=== PATIENT | male | born 1970 ===

== ENCOUNTER 2017-03-21 05:50 | Emergency (ER) | payer SELFPAY ==
[2017-03-21 06:00] VITALS: BMI 25.0
[2017-03-21 06:04] VITALS: RESP 19
--- NOTE | 2017-03-21 06:06 | C.PDOC ---
History Of Present Illness 46 year old male presents to the ER complaining of fever, cough, congestion, and sore throat for about 2 days. Denies taking any medications prior to arrival. No shortness of breath or chest pain. Patient speaking in full sentences. Cough is dry, non-productive. Time Seen by Provider: 03/21/17 06:04 Chief Complaint (Nursing): Cough, Cold, Congestion History Per: Patient History/Exam Limitations: no limitations Onset/Duration Of Symptoms: Days (x2) Current Symptoms Are (Timing): Still Present Location Of Pain: Throat Sick Contacts (Context): None Associated Symptoms: Fever, Sore Throat, Cough, Nasal Congestion Ear Symptoms: Bilateral: None Severity: Moderate Pain Scale Rating Of: 4 Recent travel outside of the [place]: No Past Medical History Reviewed: Historical Data, Nursing Documentation, Vital Signs Vital Signs: Last Vital Signs Temp 101.2 F H 03/21/17 06:00 Pulse 114 H 03/21/17 06:00 Resp 19 03/21/17 06:00 BP 128/78 03/21/17 06:00 Pulse Ox 97 03/21/17 06:20 - Medical History PMH: No Chronic Diseases Surgical History: Appendectomy Family History: States: No Known Family Hx - Social History Hx Alcohol Use: Yes Hx Substance Use: No - Immunization History Hx Tetanus Toxoid Vaccination: Yes Hx Influenza Vaccination: No Hx Pneumococcal Vaccination: No Review Of Systems Constitutional: Positive for: Fever ENT: Positive for: Nose Congestion, Throat Pain Cardiovascular: Negative for: Chest Pain Respiratory: Positive for: Cough. Negative for: Shortness of Breath, Sputum Physical Exam - Physical Exam Appears: Non-toxic, No Acute Distress Skin: Warm, Dry Head: Normacephalic Eye(s): bilateral: Normal Inspection Ear(s): Bilateral: Normal Oral Mucosa: Moist Throat: Erythema (mild), No Exudate Neck: Trachea Midline, Supple Lymphatic: No Adenopathy (cervical lymphadenopathy) Chest: Symmetrical Cardiovascular: Rhythm Regular Respiratory: No Rales, No Rhonchi, No Wheezing Gastrointestinal/Abdominal: Soft, No Tenderness, No Distention Male Genital: Normal Inspection Extremity: Normal ROM Extremity: Bilateral: Atraumatic Neurological/Psych: Oriented x3, Normal Speech ED Course And Treatment O2 Sat by Pulse Oximetry: 97 (RA) Pulse Ox Interpretation: Normal Progress Note: Patient given Tamiflu, motrin, and tessalon perles in the ER. Reassessment Condition: Improved Disposition Counseled Patient/Family Regarding: Studies Performed, Diagnosis, Need For Followup, Rx Given - Disposition Referrals: [facility] [Outside] [facility] [Outside] Disposition: HOME/ ROUTINE Disposition Time: 06:05 Condition: FAIR Additional Instructions: Please return if symptoms recur Prescriptions: Benzonatate [Tessalon Perles] 100 mg PO TID #20 sgl Oseltamivir Phosphate [Tamiflu] 75 mg PO BID #10 capsule Instructions: Influenza (ED), Upper Respiratory Infection (ED) Forms: [employer] (Maltese) - POA Present On Arrival: None - Clinical Impression Clinical Impression: Upper respiratory infection - Scribe Statement The provider has reviewed the documentation as recorded by the Scribe (Sweetie Hilton) Provider Attestation: All medical record entries made by the Scribe were at my direction and personally dictated by me. I have reviewed the chart and agree that the record accurately reflects my personal performance of the history, physical exam, medical decision making, and the department course for this patient. I have also personally directed, reviewed, and agree with the discharge instructions and disposition.
[2017-03-21 06:58] VITALS: BP 121/68; PULSE 109; TEMP 100.2; O2SAT 98
== END 2017-03-21 06:58 | disposition home or self-care (01) ==
LOC: C.ER 05:50
DX: J06.9 Acute upper respiratory infection, unspecified (principal)

== ENCOUNTER 2017-08-21 11:45 | Emergency (ER) | payer OTHER ==
[2017-08-21 11:46] VITALS: BMI 25.0
[2017-08-21 12:03] VITALS: BP 110/73; PULSE 88; RESP 18; TEMP 99; O2SAT 98
--- NOTE | 2017-08-21 12:35 | RAD ---
Date of service: 08/21/2017 HISTORY: thoracic back pain COMPARISON: No prior. TECHNIQUE: Chest PA and lateral FINDINGS: LUNGS: No active pulmonary disease. PLEURA: No significant pleural effusion identified. No pneumothorax apparent. CARDIOVASCULAR: Normal. OSSEOUS STRUCTURES: No significant abnormalities. VISUALIZED UPPER ABDOMEN: Normal. OTHER FINDINGS: None. IMPRESSION: No active disease.
--- NOTE | 2017-08-21 12:47 | C.PDOC ---
History Of Present Illness 47 y/o male presents to ED with c/o back pain for 3 days. Patient states last night he had chills and subjective fever, took Tylenol with relief of fever but back pain persisted. Patient denies injury, numbness, weakness, bowel/bladder incontinence, dysuria or hematuria. Time Seen by Provider: 08/21/17 12:09 Chief Complaint (Nursing): Back Pain History Per: Patient History/Exam Limitations: no limitations Onset/Duration Of Symptoms: Days Current Symptoms Are (Timing): Still Present Quality Of Discomfort: "Pain" Past Medical History Reviewed: Historical Data, Nursing Documentation, Vital Signs Vital Signs: Last Vital Signs Temp 99.0 F 08/21/17 12:01 Pulse 88 08/21/17 12:01 Resp 18 08/21/17 12:01 BP 110/73 08/21/17 12:01 Pulse Ox 98 08/21/17 15:08 - Medical History PMH: No Chronic Diseases Surgical History: Appendectomy Family History: States: No Known Family Hx - Social History Hx Alcohol Use: Yes Hx Substance Use: No - Immunization History Hx Tetanus Toxoid Vaccination: Yes Hx Influenza Vaccination: No Hx Pneumococcal Vaccination: No Review Of Systems Constitutional: Negative for: Fever, Chills Cardiovascular: Negative for: Palpitations Respiratory: Negative for: Cough, Shortness of Breath, Wheezing Gastrointestinal: Negative for: Nausea, Vomiting Genitourinary: Negative for: Dysuria, Hematuria Musculoskeletal: Positive for: Back Pain. Negative for: Leg Pain Skin: Negative for: Rash Physical Exam - Physical Exam Appears: Non-toxic, No Acute Distress Skin: Warm, Dry, No Rash Head: Atraumatic, Normacephalic Eye(s): bilateral: Normal Inspection Oral Mucosa: Moist Neck: Normal ROM, Supple Cardiovascular: Rhythm Regular Respiratory: Normal Breath Sounds, No Rales, No Rhonchi, No Wheezing Gastrointestinal/Abdominal: Soft, No Tenderness, No Guarding, No Rebound Back: No CVA Tenderness, Other (parathoracic muscle tenderness) Extremity: Bilateral: Atraumatic, Normal Color And Temperature, Normal ROM Neurological/Psych: Oriented x3, Normal Speech, Normal Motor, Normal Sensation Gait: Steady ED Course And Treatment O2 Sat by Pulse Oximetry: 98 (RA) Pulse Ox Interpretation: Normal Medical Decision Making Medical Decision Making: Impression: Back pain Plan: * X-ray * Motrin Progress: Xray shows no infiltrates, pleural effusion, pneumothorax. Patient remained afebrile seated comfortably in no distress. Patient has no midline vertebral tenderness or extremity weakness or numbness. Patient is ambulatory in the emergency department with no signs of discomfort. Patient was advised to follow up with physician/clinic in 1-2 days. Disposition Counseled Patient/Family Regarding: Need For Followup, Rx Given - Disposition Referrals: [facility] [Outside] [facility] [Outside] Disposition: HOME/ ROUTINE Disposition Time: 12:50 Condition: STABLE Additional Instructions: Tu radiografa fue normal, sin fractura. Por favor aplique hielo en el holly 15 minutos neelam veces al da. [place] Motrin cuando sea necesario para el dolor cada 6 horas, con alimentos para no alterar el estmago. 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 - Scribe Statement The provider has reviewed the documentation as recorded by the Saigeiblacho Bennett All medical record entries made by the Saigeiblacho were at my direction and personally dictated by me. I have reviewed the chart and agree that the record accurately reflects my personal performance of the history, physical exam, medical decision making, and the department course for this patient. I have also personally directed, reviewed, and agree with the discharge instructions and disposition.
== END 2017-08-21 12:50 | disposition home or self-care (01) ==
LOC: C.ER 11:45
DX: M54.89 Other dorsalgia (principal)